=== PATIENT | male | born 1990 | race Caucasian/White ===

== ENCOUNTER 2017-08-11 11:48 | Emergency (ER) | payer BC ==
--- NOTE | 2017-08-11 12:13 | EDM.PDOC ---
ED HPI GENERAL MEDICAL PROBLEM - General Chief Complaint: General Stated Complaint: ribs pain [id number] Time Seen by Provider: 08/11/17 11:58 Source of Information: Reports: Patient History Limitations: Reports: No Limitations - History of Present Illness INITIAL COMMENTS - FREE TEXT/NARRATIVE: This 26 yo male patient reports to the ED with left sided rib pain. The patient reports he got his vehicle stuck in his backyard 3 days ago. When he was attempting to get the vehicle out, he stepped in a hole and fell on the open window. The patient reports he has had increased pain since the injury with today being the worst pain yet. The patient has been taking ibuprofen and Tylenol with some temporary symptom relief. The patient reports that when he moves he feels the pain radiate to the posterior ribs/spine area. Onset Date: 08/08/17 Duration: Constant, Getting Worse Location: Reports: Chest (left ribs) Quality: Reports: Ache, Sharp, Stabbing Severity: Moderate (with movement) Improves with: Reports: Medication, Rest Worsens with: Reports: Movement Context: Reports: Trauma Associated Symptoms: Reports: No Other Symptoms Treatments [employer]: Reports: Acetaminophen, NSAIDS, Other Medication(s) Left Thoracic Pain Score (Numeric/FACES): 3 - Related Data Allergies Allergy/AdvReac Type Severity Reaction Status Date / Time No Known Allergies Allergy Verified 08/11/17 12:03 Home Meds: Home Meds . [No Known Home Meds] 08/11/17 [History] Past Medical History - Past Health History Medical/Surgical History: Denies Medical/Surgical History Social & Family History - Family History Family Medical History: Noncontributory - Tobacco Use Smoking Status *Q: Unknown Ever Smoked - Caffeine Use Caffeine Use: Reports: Coffee, Energy Drinks, Soda, Tea - Alcohol Use Date of Last Drink: 08/09/17 - Recreational Drug Use Recreational Drug Use: No ED ROS GENERAL - Review of Systems Review Of Systems: ROS reveals no pertinent complaints other than HPI. ED EXAM, GENERAL - Physical Exam Exam: See Below Exam Limited By: No Limitations General Appearance: Alert, WD/WN, Moderate Distress Eye Exam: Bilateral Eye: EOMI, Normal Inspection, PERRL Ears: Normal External Exam, Normal Canal, Hearing Grossly Normal, Normal TMs Nose: Normal Inspection, Normal Mucosa, No Blood Throat/Mouth: Normal Inspection, Normal Lips, Normal Teeth, Normal Gums, Normal Oropharynx, Normal Voice, No Airway Compromise Head: Atraumatic, Normocephalic Neck: Normal Inspection, Supple, Non-Tender, Full Range of Motion Respiratory/Chest: No Respiratory Distress, Lungs Clear, Normal Breath Sounds, No Accessory Muscle Use, Other (left lateral rib tenderness to palpation, no crepitis ) Cardiovascular: Normal Peripheral Pulses, Regular Rate, Rhythm, No Edema, No Gallop, No JVD, No Murmur, No Rub GI/Abdominal: Normal Bowel Sounds, Soft, Non-Tender, No Organomegaly, No Distention, No Abnormal Bruit, No Mass (Male) Exam: Deferred Rectal (Males) Exam: Deferred Back Exam: Normal Inspection, Full Range of Motion, NT Extremities: Normal Inspection, Normal Range of Motion, Non-Tender, Normal Capillary Refill, No Pedal Edema Neurological: Alert, Oriented, CN II-XII Intact, Normal Cognition, Normal Gait, Normal Reflexes, No Motor/Sensory Deficits Psychiatric: Normal Affect, Normal Mood Skin Exam: Warm, Dry, Intact, Normal Color, No Rash Lymphatic: No Adenopathy Course - Vital Signs Last Recorded V/S: Last Vital Signs Temp 36.9 C 08/11/17 12:04 Pulse 61 08/11/17 12:04 Resp 18 08/11/17 12:04 BP 125/84 08/11/17 12:04 Pulse Ox 100 08/11/17 12:04 - Orders/Labs/Meds Orders: Active Orders 24 hr Category Date Time Status Ribs 2V w Chest Lt [CR] Urgent Exams 08/11/17 12:00 Taken Meds: Medications Discontinued Medications Generic Name Dose Route Start Last Admin Trade Name Marlonq PRN Reason Stop Dose Admin Hydrocodone Bitart/Acetaminophen 1 tab 08/11/17 13:12 Odessa 325-10 Mg PO 08/11/17 13:13 ONETIME ONE Departure - Departure Time of Disposition: 13:14 Disposition: Home, Self-Care 01 Condition: Fair Clinical Impression: Contusion of rib on left side Qualifiers: Encounter type: initial encounter Qualified Code(s): S20.212A - Contusion of left front wall of thorax, initial encounter - Discharge Information Instructions: Chest Contusion, Adult, [id number] Forms: ED Department Discharge Care Plan Goals: The patient was advised of the examination and x-ray results during the visit. The patient was given an oral dose of Odessa (10/325) while in the ED. The patient was discharged with a script for Od[place] (5/325) #8 to take 1 by mouth every 6 as needed for pain. The patient should not drive while taking pain medications. If the patient has any additional symptoms or concerns, the patient should follow-up with his primary care facility or return to the emergency department. - My Orders Last 24 Hours: My Active Orders 08/11/17 12:00 Ribs 2V w Chest Lt [CR] Urgent - Assessment/Plan Last 24 Hours: My Active Orders 08/11/17 12:00 Ribs 2V w Chest Lt [CR] Urgent
[2017-08-11] MEDS ORDERED: Acetaminophen/HYDROcodone 325-10 MG Tab PO ONE (13:12)
== END 2017-08-11 13:21 | disposition home or self-care (01) ==
LOC: DL.ED 11:48
DX: S20.212A Contusion of left front wall of thorax, initial encounter (principal); W18.31XA Fall on same level due to stepping on an object, initial encounter
CPT/HCPCS: 71101; 99283; A9270